=== PATIENT | male | born 1970 | race Caucasian/White ===

== ENCOUNTER 2018-07-10 06:44 | Emergency (ER) | payer SELFPAY ==
[2018-07-10 06:50] VITALS: BP 110/80; PULSE 74; RESP 16; TEMP 36.6; O2SAT 97; BMI 28.3
--- NOTE | 2018-07-10 07:37 | DI.RAD.S_ITS ---
PROCEDURE: XR CHEST 2V INDICATIONS: Cough and cold symptoms TECHNIQUE: 2 views of the chest were acquired. COMPARISON: None. FINDINGS: Surgical changes and devices: None. Lungs and pleura: Lungs are clear. No pleural effusions or pneumothorax. Mediastinum: Mediastinal contours are normal. Heart size is normal. Bones and chest wall: No suspicious bony abnormalities. Soft tissues appear unremarkable. IMPRESSION: Normal for age, source of current cough and upper respiratory tract infection symptoms is not seen. Dictated by: Magno Rosenthal M.D. on 07/10/2018 at 8:23 Approved by: Magno Rosenthal M.D. on 07/10/2018 at 8:23
--- NOTE | 2018-07-10 07:47 | ED.URI ---
HPI - URI/Sore Throat General Chief Complaint: Upper Respiratory Symptoms Stated Complaint: 'chest cold going on/sinus infection/pulled muscle Time Seen by Provider: 07/10/18 07:47 Source: patient Mode of arrival: ambulatory Limitations: no limitations History of Present Illness HPI Narrative: This is a 48-year-old male comes to the emergency department with complaint of sinus congestion, cough with some green productive sputum. Patient has not had any fevers. He states no ear pain. He has pressure in his sinuses. Patient has not had any nausea or vomiting. No other GI or urinary symptoms. No swelling in his lower extremities. He feels a little congested in his chest. He states that he does not feel short of breath, he has not had any tightness or pressure in his chest or pain he denies any other medical issues. He does smoke regularly about a pack every 24 hours. Rare usage of cocaine and occasional alcohol. Patient denies any other illicits. He denies any prior surgeries. 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 Related Data Home Medications Medication Instructions Recorded Confirmed OMEPRAZOLE (Prilosec) 20 mg PO #0 12/18/05 Diphenhydramine Hydrochloride 0 PO * [place] DOSE/FREQUENCY #0 05/06/06 (Benadryl) PredniSONE (Deltasone) 0 PO * UK DOSE/FREQUENCY #0 05/06/06 Ranitidine Hydrochloride 0 mg PO * [place] DOSE/FREQUENCY #0 05/06/06 (Ranitidine HCl) Previous Rx's Medication Instructions Recorded fluticasone propionate [Flonase 1 spray NASAL DAILY #9.9 gram 07/10/18 Allergy Relief] prednisone 50 mg PO DAILY #5 tab 07/10/18 Allergies Allergy/AdvReac Type Severity Reaction Status Date / Time No Known Drug Allergies Allergy Verified 07/10/18 07:38 Review of Systems Review of Systems ROS Unobtainable: All systems reviewed & are unremarkable except as noted in HPI and below Constitutional Denies chills, Denies fever(s), Denies headache(s), Denies lethargy and Denies weakness ENT Ears, Nose, Mouth, and Throat: Reports as per HPI, Denies change in voice, Denies dysphagia, Denies otalgia, Denies headache(s), Denies hoarseness, Reports nasal congestion, Denies nasal discharge, Reports post nasal drip, Denies sinus pain, Reports sinus pressure and Denies sore throat Cardiovascular Denies chest pain, Denies diaphoresis, Denies syncope, Denies edema, Denies irregular heart rhythm, Reports lightheadedness (rarely), Denies palpitations, Denies dyspnea, Denies dyspnea on exertion and Denies orthopnea Respiratory Reports change in phlegm color (green), Reports chest congestion, Reports cough, Denies pain on inspiration, Denies pain with cough, Denies dyspnea, Denies dyspnea on exertion and Denies wheezing Gastrointestinal Gastrointestinal: Denies abdominal pain, Denies change in bowel habits, Denies dysphagia, Denies diarrhea, Denies nausea and Denies vomiting Genitourinary Denies hematuria, Denies difficulty urinating, Denies flank pain and Denies urinary urgency Integumentary/Breasts Denies rash Neurologic Denies syncope, Denies headache(s) and Denies weakness Endocrine Denies palpitations Allergic/Immunologic Denies wheezing [facility] Medical History (Updated 07/10/18 @ 08:07 by Mindi Reynoso DO) Tobacco abuse (Chronic) Social History Smoking Status: Current every day smoker Social History (Updated 07/10/18 @ 08:08 by Mindi Reynoso DO) Smoking Status: Current every day smoker alcohol intake: current substance use type: crack/cocaine Exam Narrative Exam Narrative: GEN: well nourished, well appearing male, alert and oriented x 3, patient appears to be in no acute distress. HEENT: Atraumatic, pupils are equal round reactive to light, extraocular movements are intact, nares are clear, TMs are clear with no fluid, there is no conjunctival pallor. Throat is has some postnasal drip without any exudates, erythema, tonsillar enlargement or uvular deviation, mild bilateral submandibular lymphadenopathy. No sinus tenderness. HEART: Regular rate and rhythm without murmur, clicks, rubs. LUNGS:Lungs clear to auscultation, no wheezes, rales, crackles, chest moves symmetrically ABD:bowel sounds normal, soft, non-tender, no guarding, rebound, rigidity, no masses noted, no hepatosplenomegaly MSCL: Non-tender, no muscle atrophy, muscles strength 5/5 upper and lower extremities, full range of motion, normal gait NEURO:CN 2-12 intact, sensation normal SKIN: Patient has healing abrasions on his anterior abdomen that appear clear clean dry and intact Initial Vital Signs Initial Vital Signs: Vital Signs Temperature 97.8 F 07/10/18 06:50 Pulse Rate 74 07/10/18 06:50 Respiratory Rate 16 07/10/18 06:50 Blood Pressure 110/80 07/10/18 06:50 Pulse Oximetry 97 07/10/18 06:50 Course Orders Ordered: ED Orders 07/10/18 07:37 CXR [XR chest 2V] Stat Vital Signs - 8 hr 07/10/18 06:50 Temperature 97.8 F Pulse Rate 74 Respiratory Rate 16 Blood Pressure 110/80 Pulse Oximetry 97 MDM - URI/Sore Throat Imaging Data Chest x-ray: Attestation: I personally reviewed and interpreted this imaging study as follows: My impression: No acute process. Radiologist's impression: [address] [address] XRay Report Signed Patient: Joseph Sutton LMR#: [id number] : 1970Acct:[id number] Age/Sex: 48 / MDate of Service: 07/10/18 Loc: ED Accession Number: [id number] Procedure: XR chest 2V Ordering Provider: Mindi Reynoso D.O. PROCEDURE: XR CHEST 2V INDICATIONS: Cough and cold symptoms TECHNIQUE: 2 views of the chest were acquired. COMPARISON: None. FINDINGS: Surgical changes and devices: None. Lungs and pleura: Lungs are clear. No pleural effusions or pneumothorax. Mediastinum: Mediastinal contours are normal. Heart size is normal. Bones and chest wall: No suspicious bony abnormalities. Soft tissues appear unremarkable. IMPRESSION: Normal for age, source of current cough and upper respiratory tract infection symptoms is not seen. Dictated by: Magno Rosenthal M.D. on 07/10/2018 at 8:23 Approved by: Magno Rosenthal M.D. on 07/10/2018 at 8:23 [facility] Narrative Medical decision making narrative: Discussed with patient suspect he has some bronchitis with some recent upper respiratory viral infection causing his symptoms in combination with his tobacco abuse. We did discuss antibiotics but I suspect he will do better with some steroids. Patient agreeable to trying steroids 1st. Discussed signs and symptoms to watch out for. Counseling given for tob and cocaine cessation. Patient has not used cocaine in quite some time per patient. Discharge Plan Departure Patient Disposition: Home Clinical Impression: Bronchitis Discharge Date/Time: 07/10/18 08:08 Interventions: ED Discharge Assessment Last Done: 07/10/18 08:08 Instructions: Acute Bronchitis Activity Restrictions/Additional Instructions: Follow up with primary care physician in the next 3-5 days if not improving. The number to find a physician is [phone]. Take oral steroids until gone. Use nasal steroids 1 puff in each nostril in the morning and evening. Make sure drinking plenty of fluids. Return to the emergency department for fevers greater 100.4 F, worsening shortness breath, passing out, persistent vomiting, new chest pain or shortness of breath, swelling in your lower extremities or other new or concerning symptoms. Prescriptions: New prednisone 50 mg tablet 50 mg PO DAILY Qty: 5 RF: 0 fluticasone propionate [Flonase Allergy Relief] 50 mcg/actuation spray,suspension 1 spray NASAL DAILY Qty: 9.9 RF: 0 No Action OMEPRAZOLE (Prilosec) 20 mg PO Qty: 0 RF: 0 PredniSONE (Deltasone) PO * [place] DOSE/FREQUENCY Qty: 0 RF: 0 Diphenhydramine Hydrochloride (Benadryl) PO * [place] DOSE/FREQUENCY Qty: 0 RF: 0 Ranitidine Hydrochloride (Ranitidine HCl) PO * [place] DOSE/FREQUENCY Qty: 0 RF: 0
== END 2018-07-10 08:08 | disposition home or self-care (01) ==
PROVIDERS: Emergency Provider Emergency Medicine
DX: J40 Bronchitis, not specified as acute or chronic (principal)
CPT/HCPCS: 71046; 99283

== ENCOUNTER 2018-07-20 23:14 | Emergency (ER) | payer SELFPAY ==
[2018-07-20 23:17] VITALS: BP 128/88; PULSE 81; RESP 18; TEMP 36.6; O2SAT 98; BMI 28.3
[2018-07-21] MEDS: ACETAMINOPHEN 325 MG TABLET 975 MG PO (00:32)
[2018-07-21] MEDS: AMOXICILLIN 250 MG PREPACK 1 BOTTLE MISC (00:32)
--- NOTE | 2018-07-21 00:33 | ED.DENTAL ---
HPI - Dental/Oral General Chief complaint: Dental/Oral Stated complaint: jaw pain Time Seen by Provider: 07/21/18 00:10 Source: patient Mode of arrival: ambulatory Limitations: no limitations History of Present Illness HPI Narrative: Patient is a 48-year-old male who presents with left upper dental pain. It has been ongoing off and on for the past 4 days progressively getting worse. Very sensitive to cold and heat. No fever he has shooting pain up into his ear. He has appointment with the dentist in 2 days. MD Complaint: tooth pain 1. Pain no abscess Related Data Home Medications Medication Instructions Recorded Confirmed OMEPRAZOLE (Prilosec) 20 mg PO #0 12/18/05 Diphenhydramine Hydrochloride 0 PO * UK DOSE/FREQUENCY #0 05/06/06 (Benadryl) PredniSONE (Deltasone) 0 PO * UK DOSE/FREQUENCY #0 05/06/06 Ranitidine Hydrochloride 0 mg PO * UK DOSE/FREQUENCY #0 05/06/06 (Ranitidine HCl) Previous Rx's Medication Instructions Recorded fluticasone propionate [Flonase 1 spray NASAL DAILY #9.9 gram 07/10/18 Allergy Relief] prednisone 50 mg PO DAILY #5 tab 07/10/18 amoxicillin 500 mg PO BID 7 Days #14 cap 07/21/18 Allergies Allergy/AdvReac Type Severity Reaction Status Date / Time No Known Drug Allergies Allergy Verified 07/10/18 07:38 Review of Systems Review of Systems GENERAL: Denies chills,fever HEENT: See HPI RESPIRATORY: Denies dyspnea, cough, wheezing CARDIOVASCULAR: Denies chest pain, palpitations GASTROINTESTINAL: Denies nausea, vomiting MUSCULOSKELETAL: Denies extremity pain, injury SKIN: No rash, no laceration, no pruritus NEUROLOGIC: Denies weakness, dizziness, headache, numbness 8 point review of systems is negative except for those stated above and HPI [facility] Medical History Tobacco abuse (Chronic) Social History (Updated 07/10/18 @ 08:08 by Mindi Reynoso DO) Smoking Status: Current every day smoker alcohol intake: current substance use type: crack/cocaine Social History Smoking Status: Current every day smoker alcohol intake: current substance use type: crack/cocaine Exam Initial Vital Signs Initial Vital Signs: Vital Signs Temperature 97.8 F 07/20/18 23:17 Pulse Rate 81 07/20/18 23:17 Respiratory Rate 18 07/20/18 23:17 Blood Pressure 128/88 07/20/18 23:17 Pulse Oximetry 98 07/20/18 23:17 GENERAL: Well-appearing, well-nourished and in no acute distress. CARDIOVASCULAR: peripheral pulses in tact, cap refill <2 sec RESPIRATORY: No respiratory distress, speaks in full sentences without difficulty EXTREMITIES: Normal range of motion, no clubbing or edema. Neurovascularly intact NEUROLOGICAL: Cranial nerves II through XII grossly intact. Normal gait and speech. SKIN: Warm, dry, no petechiae, no rashes or lesions. HENMT Mouth: other (No abscess no trismus no swelling. Dental filling noted tooth 14. ) Course Orders Ordered: Discontinued Medications Acetaminophen (Tylenol) 975 mg PO NOW ONE Stop: 07/21/18 00:17 Last Admin: 07/21/18 00:32 Dose: 975 mg Amoxicillin ( Trimox 250mg Prepack) 1 bottle MISC SEEINSTR ONE Stop: 07/21/18 00:17 Last Admin: 07/21/18 00:32 Dose: 1 bottle Vital Signs - 8 hr 07/20/18 23:17 07/21/18 00:39 Temperature 97.8 F 98.7 F Pulse Rate 81 70 Respiratory Rate 18 16 Blood Pressure 128/88 122/85 Pulse Oximetry 98 98 Discharge Plan Departure Patient Disposition: Home Clinical Impression: Toothache Discharge Date/Time: 07/21/18 00:42 Interventions: ED Discharge Assessment Last Done: 07/21/18 00:39 Instructions: DI for Dental Pain Activity Restrictions/Additional Instructions: *You have been diagnosed with dental pain *What to do: Need to see dentist for further treatment *Continue to take medications as directed Amoxicillin 500 mg twice daily for 7 days *Follow up with your primary care provider in 2-3 days see dentist in 2 days as previously arranged *Return to ER if you should have worsening pain, facial swelling or any new, worsening or concerning symptoms Prescriptions: New amoxicillin 500 mg capsule 500 mg PO BID 7 Days Qty: 14 RF: 0 No Action OMEPRAZOLE (Prilosec) 20 mg PO Qty: 0 RF: 0 PredniSONE (Deltasone) PO * [place] DOSE/FREQUENCY Qty: 0 RF: 0 Diphenhydramine Hydrochloride (Benadryl) PO * DOSE/FREQUENCY Qty: 0 RF: 0 Ranitidine Hydrochloride (Ranitidine HCl) PO * DOSE/FREQUENCY Qty: 0 RF: 0 prednisone 50 mg tablet 50 mg PO DAILY Qty: 5 RF: 0 fluticasone propionate [Flonase Allergy Relief] 50 mcg/actuation spray,suspension 1 spray NASAL DAILY Qty: 9.9 RF: 0
[2018-07-21 00:39] VITALS: BP 122/85; PULSE 70; RESP 16; TEMP 37.1; O2SAT 98
== END 2018-07-21 00:42 | disposition home or self-care (01) ==
PROVIDERS: Emergency Provider Emergency Medicine
DX: K08.89 Other specified disorders of teeth and supporting structures (principal)
CPT/HCPCS: 99282; 99283

== ENCOUNTER 2018-10-09 08:36 | Emergency (ER) | payer SELFPAY ==
[2018-10-09 08:48] VITALS: BP 111/76; PULSE 97; RESP 18; TEMP 37.8; O2SAT 98
[2018-10-09 09:00] VITALS: BP 109/68; PULSE 93; RESP 16; O2SAT 99
--- NOTE | 2018-10-09 09:05 | ED_ITS ---
HPI - URI/Sore Throat General Chief Complaint: Upper Respiratory Symptoms Stated Complaint: not feeling good/chills/burning up Time Seen by Provider: 10/09/18 08:38 Source: patient Mode of arrival: ambulatory Limitations: no limitations History of Present Illness HPI Narrative: Patient comes emergency department complaining of chills, sweats, fevers, and aches, as well as a light cough, for the last 3 or 4 days. Patient denies any dysuria. No rhinorrhea. No nausea or vomiting today, but he did have an episode yesterday. No diarrhea. Patient states he has not had a sore throat except for yesterday when he swallowed some Powerade, and felt a pain in his throat at that time. Patient denies back pain. No other complaints at this time. Patient states he did have a sick contact at work last week, and that the man had been having fevers. Related Data Home Medications Medication Instructions Recorded Confirmed OMEPRAZOLE (Prilosec) 20 mg PO #0 12/18/05 Diphenhydramine Hydrochloride 0 PO * UK DOSE/FREQUENCY #0 05/06/06 (Benadryl) PredniSONE (Deltasone) 0 PO * UK DOSE/FREQUENCY #0 05/06/06 Ranitidine Hydrochloride 0 mg PO * UK DOSE/FREQUENCY #0 05/06/06 (Ranitidine HCl) Previous Rx's Medication Instructions Recorded fluticasone propionate [Flonase 1 spray NASAL DAILY #9.9 gram 07/10/18 Allergy Relief] prednisone 50 mg PO DAILY #5 tab 07/10/18 Allergies Allergy/AdvReac Type Severity Reaction Status Date / Time No Known Drug Allergies Allergy Verified 10/09/18 08:51 Review of Systems Review of Systems ROS Unobtainable: All systems reviewed & are unremarkable except as noted in HPI and below Constitutional Constitutional: Reports chills, Denies fatigue, Reports fever(s), Denies frequent falls, Denies lethargy and Reports weakness Comments: Sweats Eyes Eyes: Denies change in vision, Denies eye discharge, Denies irritation and Denies loss of vision ENT Ears, Nose, Mouth, and Throat: Denies change in voice, Denies dizziness, Denies neck pain, Denies sore throat and Denies throat swelling Cardiovascular Cardiovascular: Denies chest pain, Denies irregular heart rhythm, Denies lightheadedness, Denies palpitations, Denies dyspnea, Denies dyspnea on exertion and Denies orthopnea Respiratory Respiratory: Denies cough, Denies dyspnea, Denies dyspnea on exertion and Denies wheezing Gastrointestinal Gastrointestinal: Denies abdominal pain, Denies change in bowel habits, Denies diarrhea, Denies nausea and Denies vomiting Genitourinary Genitourinary: Denies hematuria, Denies flank pain, Denies urinary incontinence and Denies urinary urgency Musculoskeletal Musculoskeletal: Denies back pain, Reports myalgias, Denies muscle weakness, Denies neck pain, Denies numbness and Denies tingling Integumentary/Breasts Skin/Breast: Denies pruritus, Denies erythema, Denies rash and Denies wounds Neurologic Neurologic: Denies behavioral changes, Denies confusion, Denies dizziness, Denies frequent falls, Denies loss of vision, Denies numbness, Denies tingling and Reports weakness Psychiatric Psychiatric: Denies anxiety, Denies behavioral changes, Denies confusion, Denies depression, Denies homicidal ideation and Denies suicidal ideation Endocrine Endocrine: Denies fatigue, Denies flushing and Denies palpitations Hematologic/Lymphatic Hematologic/Lymphatic: Denies easy bruising Allergic/Immunologic Allergic/Immunologic: Denies urticaria, Denies throat swelling and Denies wheezing [facility] Medical History Asthma (Acute) GERD (gastroesophageal reflux disease) (Acute) Tobacco abuse (Chronic) Social History Smoking Status: Current every day smoker alcohol intake: current substance use type: crack/cocaine Social History Smoking Status: Current every day smoker alcohol intake: current substance use type: crack/cocaine Exam Initial Vital Signs Initial Vital Signs: Vital Signs Temperature 100.1 F H 10/09/18 08:48 Pulse Rate 97 H 10/09/18 08:48 Respiratory Rate 18 10/09/18 08:48 Blood Pressure 111/76 10/09/18 08:48 Pulse Oximetry 98 10/09/18 08:48 Const General: cooperative and well developed Nutritional Appearance: well nourished Orientation: alert, awake, oriented x3 and not confused HENLA Head: normocephalic and atraumatic Ears: external ears normal Nose: external nose normal and No nasal discharge Face and sinus: face symmetric and No dry mucous membranes Mouth: oral mucosae normal and moist mucous membranes Teeth and gingiva: dentition normal Throat: tonsils normal and uvula midline Eyes General: appearance normal, both eyes and all related structures Eyelids: eyelids normal Conjunctivae: conjunctivae normal Sclera: sclerae normal Pupils: PERRL EOM: EOM intact bilaterally Neck Neck: normal visual inspection, trachea midline, No lymphadenopathy, No midline deformity and No JVD Lymphatic: No lymphedema Chest Chest: normal inspection of the chest Resp Effort & Inspection: normal respiratory effort, able to speak in complete sentences, no respiratory distress and no use of accessory muscles Auscultation: clear to auscultation bilaterally, no rales, no rhonchi and no wheezes Cardio Rate: regular rate Rhythm: regular rhythm Heart Sounds: no click, no gallops, no murmurs and no rubs Pulses: normal peripheral pulses GI Inspection: non-distended Palpation: soft, no hepatosplenomegaly, No guarding, No pulsatile mass and No tender Auscultation: normal bowel sounds Back/Spine/Pelvis Back: CVA tenderness (Mild, bilateral) Cervical Spine: cervical ROM normal and No pain with cervical ROM Thoracic/Lumbar Spine: thoracic and lumbar spine normal to inspection Skin General: no rashes or lesions noted, No jaundice and No petechiae Neuro General: alert, oriented x3, gait normal and no focal motor deficits Speech: speech normal Extrem General: full ROM, no clubbing, cyanosis or edema, no pedal edema and no calf tenderness Psych Appearance: well kempt Mental Status: mental status grossly normal Attitude: cooperative Thought Content: normal and suicidality Judgment: judgment good Course Course Course Narrative: The patient was given a L of IV fluid, as well as ibuprofen and Tylenol, and worked up with influenza testing, urinalysis, and chest x-ray. Workup was found to be negative. Patient was found be feeling better after IV fluid and antipyretics. We have discussed home management of symptoms, as well as the usual indications for return. Patient has been found to have a small pulmonary nodule on x-ray, which is likely chronic. He has been instructed that he will need a follow-up x-ray in about 6 months to re-evaluate this. Orders Ordered: Discontinued Medications Acetaminophen (Tylenol) 975 mg PO NOW ONE Stop: 10/09/18 09:04 Last Admin: 10/09/18 09:34 Dose: 975 mg Documented by: RODOLFO Sodium Chloride (Normal Saline 0.9%) 1,000 mls @ 1,000 mls/hr IV BOLUS ONE Stop: 10/09/18 10:02 Last Infusion: 10/09/18 10:45 Dose: 0 mls/hr Documented by: Admin: 10/09/18 09:36 Dose: 1,000 mls/hr Documented by: RODOLFO Ibuprofen (Advil) 800 mg PO NOW ONE Stop: 10/09/18 09:04 Last Admin: 10/09/18 09:34 Dose: 800 mg Documented by: RODOLFO Vital Signs Vital signs: Vital Signs - 8 hr 10/09/18 08:48 Temperature 100.1 F H Pulse Rate 97 H Respiratory Rate 18 Blood Pressure 111/76 Pulse Oximetry 98 MDM - URI/Sore Throat Medical Records Attestation: I reviewed the patient's medical records. Lab Data Attestation: I reviewed the patient's lab results. Labs: Lab Results 10/09/18 10/09/18 10/09/18 Range/Units 09:14 09:17 09:24 Urine Color Yellow Urine Appearance Clear Urine pH 6.0 (4.5-8.0) Ur Specific [place] 1.025 (1.000-1.035) Urine Protein 2+ H (Negative) Urine Glucose (UA) Negative (Negative) g/dL Urine Ketones 1+ H (NEGATIVE) Urine Occult Blood 3+ H (Negative) Urine Nitrate Negative (Negative) Urine Bilirubin 1+ H (NEGATIVE) Urine Ictotest Negative (Negative) Urine Urobilinogen 2.0 H (0.2) E.U./dL Ur Leukocyte Esterase Negative (NEGATIVE) Urine RBC 30-100/hpf H 30-100/hpf H (0-5/HPF) Urine WBC 0-1/hpf 0-1/hpf (0-5/HPF) Ur Squamous Epith Cells 1-5 /hpf 1-5 /hpf (0-5/HPF) Urine Bacteria None seen None seen (None) Ur Culture Indicated? Cult not indicated Cult not indicated Influenza A & B (PCR) Negative (Negative) Urine Dip Bedside Urine Glucose Negative Bedside Urine Bilirubin + 1 Bedside Urine Ketone ++ 40 Urine Specific [place] 1.025 Bedside Urine Occult Blood +++ Bedside Urine pH 6.0 Bedside Urine Protein ++ 100 Bedside Urine Urobilinogen 2+ 4mg Bedside Urine Nitrite - Negative Bedside Urine Leukocytes +/- 15 Esterase Imaging Data Chest x-ray: Radiologist's impression: PROCEDURE: XR CHEST 2V INDICATIONS: cough/fever TECHNIQUE: 2 views of the chest were acquired. COMPARISON: [facility], , XR CHEST 2V, 07/10/2018, 7:40. FINDINGS: Surgical changes and devices: None. Lungs and pleura: Lungs are clear. 4 mm pulmonary nodule overlying the right second anterior rib. Unchanged. No pleural effusions or pneumothorax. Mediastinum: Mediastinal contours are normal. Heart size is normal. Bones and chest wall: No suspicious bony abnormalities. Soft tissues appear unremarkable. IMPRESSION: 1. No evidence acute pulmonary process. 2. Incidental 4 mm nodular density, either related to the right second rib or in the right lung. PULMONARY NODULE MANAGEMENT RECOMMENDATIONS: Pulmonary nodules are a common incidental finding on CT. If there is prior imaging such as a chest radiograph or CT available at another facility, this should be compared to assess for stability. Solid noncalcified pulmonary nodule less than 6 mm: In patient's with a low risk of malignancy, no follow up imaging is recommended for this nodule (less than 1% risk of malignancy). In patients at higher risk, and(s) dose CT of the chest in 12 months is recommended. Risk factors include current smoking, recently quit smoking, and morphology (e.g. spiculated margins). Reference: Mihir Prakash. et al, Radiology. 2016April 04, PMID: [id number] Dictated by: Willem Solano M.D. on 10/09/2018 at 9:40 Approved by: Willem Solano M.D. on 10/09/2018 at 9:43 Discharge Plan Departure Patient Disposition: Home Clinical Impression: Acute viral syndrome Discharge Date/Time: 10/09/18 10:46 Instructions: DI for Viral Syndrome Activity Restrictions/Additional Instructions: Your urinalysis, influenza test, and chest x-ray are all negative. There is a small pulmonary nodule, which is a growth of tissue that is commonly found in lungs on imaging. You will need to have a repeat chest x-ray in about 6 months to see how this is doing. Most likely this is a benign finding. As far as your fever and chills, you most likely have 1 of the many viruses that go around. This will blow over on its own. Please drink plenty of fluids and take ibuprofen and Tylenol, as needed for fever. You may take Tylenol 650 mg every 4 hours and ibuprofen 600 mg every 6 hours, as needed for fever. Prescriptions: No Action OMEPRAZOLE (Prilosec) 20 mg PO Qty: 0 RF: 0 PredniSONE (Deltasone) 0 PO * UK DOSE/FREQUENCY Qty: 0 RF: 0 Diphenhydramine Hydrochloride (Benadryl) 0 PO * UK DOSE/FREQUENCY Qty: 0 RF: 0 Ranitidine Hydrochloride (Ranitidine HCl) 0 mg PO * UK DOSE/FREQUENCY Qty: 0 RF: 0 prednisone 50 mg tablet 50 mg PO DAILY Qty: 5 RF: 0 fluticasone propionate [Flonase Allergy Relief] 50 mcg/actuation spray,suspension 1 spray NASAL DAILY Qty: 9.9 RF: 0 Referrals: [facility] [Provider Group]
[2018-10-09 09:19] LABS: Bacteria Urine None Seen
[2018-10-09 09:27] LABS: Culture Indicated Urine Cult Not Indicated; RBC Urine 30-100/HPF (0-5/HPF); Squamous Epithelial Cell Urine 1-5 /HPF (0-5/HPF); WBC Urine 0-1/HPF (0-5/HPF)
[2018-10-09 09:31] LABS: Appearance Urine UA CLEAR; Bacteria Urine None Seen; Bilirubin Urine UA 1+ (NEGATIVE); Color Urine UA YELLOW; Glucose Urine UA NEGATIVE (Negative); Ketones Urine UA 1+ (NEGATIVE); Leukocyte Esterase Urine UA NEGATIVE (NEGATIVE); Nitrite Urine UA NEGATIVE (Negative); Occult Blood Urine UA 3+ (Negative); Protein Urine UA 2+ (Negative); Specific Gravity Urine UA 1.025 (1.000-1.035)
[2018-10-09 09:34] VITALS: TEMP 38
[2018-10-09] MEDS: IBUPROFEN 400 MG TABLET 800 MG PO (09:34)
[2018-10-09] MEDS: ACETAMINOPHEN 325 MG TABLET 975 MG PO (09:34)
[2018-10-09 09:35] LABS: Culture Indicated Urine Cult Not Indicated; Ictotest Urine Negative (Negative); RBC Urine 30-100/HPF (0-5/HPF); Squamous Epithelial Cell Urine 1-5 /HPF (0-5/HPF); WBC Urine 0-1/HPF (0-5/HPF)
[2018-10-09] MEDS: SODIUM CHLORIDE 0.9% 1,000 ML 1000 ML IV (09:36)
[2018-10-09 09:43] LABS: Influenza A and B by PCR Rapid Negative (Negative)
[2018-10-09 10:30] VITALS: BP 101/65; PULSE 82; RESP 12; O2SAT 99
[2018-10-09 10:36] VITALS: TEMP 37.1
== END 2018-10-09 10:46 | disposition home or self-care (01) ==
PROVIDERS: Emergency Provider Emergency Medicine
DX: B34.9 Viral infection, unspecified (principal); R50.9 Fever, unspecified
CPT/HCPCS: 36591; 71046; 81001; 81003; 81015; 87400; 87502; 96360; 99283; 99284

== ENCOUNTER 2022-05-27 14:45 | Emergency (ER) | payer OTHER, SELFPAY ==
[2022-05-27 15:10] VITALS: BP 131/88; PULSE 91; RESP 16; TEMP 36.6; O2SAT 97; BMI 29.9
--- NOTE | 2022-05-27 16:56 | PC.NURSE ---
Pt was recently treated for a sinus infection with amoxicillian. Finished coarse of antbx last week
[2022-05-27] MEDS: LIDOCAINE PATCH 1 EACH ADH..PATCH TOP (17:58)
[2022-05-27 18:04] VITALS: BP 132/88; PULSE 90; RESP 16; O2SAT 99
--- NOTE | 2022-05-27 18:52 | ED.EAR ---
HPI - Ear Problem <Neil Rome PA-C - Last Filed: 05/27/22 18:58> General Chief complaint: Ear Stated complaint: ear ache moved to headache pain down neck Time Seen by Provider: 05/27/22 17:18 Source: patient Mode of arrival: Ambulatory History of Present Illness HPI Narrative: 51-year-old male with past medical history GERD, asthma presents to the ED with 1 week of left-sided ear pain, left-sided neck pain. Patient denies fever, chills, rhinorrhea, sore throat, cough, chest pain, shortness of breath, lightheadedness, dizziness, syncope, nausea, vomiting. Patient denies any changes in hearing. Patient states that he had a cold about 10 days ago. Patient states that he also had sinusitis 2 or 3 weeks ago for which she completed a course of amoxicillin. Patient states that he has left-sided neck pain that feels like he pulled a muscle. Related Data Home Medications Medication Instructions Recorded Confirmed OMEPRAZOLE (Prilosec) 20 mg PO ##0 12/18/05 Diphenhydramine Hydrochloride 0 PO * UK DOSE/FREQUENCY ##0 05/06/06 (Benadryl) PredniSONE (Deltasone) 0 PO * UK DOSE/FREQUENCY ##0 05/06/06 Ranitidine Hydrochloride 0 mg PO * UK DOSE/FREQUENCY ##0 05/06/06 (Ranitidine HCl) Previous Rx's Medication Instructions Recorded fluticasone propionate 50 1 spray intranasal DAILY #9.9 grams 07/10/18 mcg/actuation nasal spray,suspension (Flonase Allergy Relief) prednisone 50 mg tablet 50 mg PO DAILY #5 tabs 07/10/18 amoxicillin 875 mg-potassium 1 tab PO BID 7 days #14 tabs 05/27/22 clavulanate 125 mg tablet Allergies Allergy/AdvReac Type Severity Reaction Status Date / Time No Known Drug Allergies Allergy Verified 10/09/18 08:51 Review of Systems <Neil Rome PA-C - Last Filed: 05/27/22 18:58> Review of Systems ROS Unobtainable: All systems reviewed & are unremarkable except as noted in HPI and below Constitutional Constitutional: Denies chills, Denies fatigue, Denies fever(s), Denies frequent falls, Denies lethargy and Denies weakness Eyes Eyes: Denies change in vision, Denies eye discharge, Denies irritation and Denies loss of vision ENT Ears, Nose, Mouth, and Throat: Denies change in voice, Denies dizziness, Reports otalgia, Denies neck pain, Denies sore throat and Denies throat swelling Cardiovascular Cardiovascular: Denies chest pain, Denies irregular heart rhythm, Denies lightheadedness, Denies palpitations, Denies dyspnea, Denies dyspnea on exertion and Denies orthopnea Respiratory Respiratory: Denies cough, Denies dyspnea, Denies dyspnea on exertion and Denies wheezing Gastrointestinal Gastrointestinal: Denies abdominal pain, Denies change in bowel habits, Denies diarrhea, Denies nausea and Denies vomiting Genitourinary Genitourinary: Denies hematuria, Denies flank pain, Denies urinary incontinence and Denies urinary urgency Musculoskeletal Musculoskeletal: Denies back pain, Denies muscle weakness, Denies neck pain, Denies numbness and Denies tingling Comments: Neck pain Integumentary/Breasts Skin/Breast: Denies pruritus, Denies erythema, Denies rash and Denies wounds Neurologic Neurologic: Denies behavioral changes, Denies confusion, Denies dizziness, Denies frequent falls, Denies loss of vision, Denies numbness, Denies tingling and Denies weakness Psychiatric Psychiatric: Denies anxiety, Denies behavioral changes, Denies confusion, Denies depression, Denies homicidal ideation and Denies suicidal ideation Endocrine Endocrine: Denies fatigue, Denies flushing and Denies palpitations Hematologic/Lymphatic Hematologic/Lymphatic: Denies easy bruising Allergic/Immunologic Allergic/Immunologic: Denies urticaria, Denies throat swelling and Denies wheezing Patient History <Neil Rome PA-C - Last Filed: 05/27/22 18:58> Medical History Asthma GERD (gastroesophageal reflux disease) Tobacco abuse Social History Smoking Status: Current every day smoker alcohol intake: current substance use type: crack/cocaine Smoking Status: Current every day smoker alcohol intake frequency: holidays/special occasions only Substance Use Type: does not use Exam <Neil Rome PA-C - Last Filed: 05/27/22 18:58> Narrative Exam Narrative: Const General:?cooperative, healthy appearing and comfortable [facility] Head:?normal to inspection Ears:?hearing grossly normal bilaterally; left tympanum appears erythematous, bulging; right tympanum normal Nose:?external nose normal Face and sinus:?normal facial exam and sinuses nontender Mouth:?oral mucosae normal Throat:?posterior oropharynx normal Eyes General:?appearance normal, both eyes and all related structures Neck Neck:?normal visual inspection and no lymphadenopathy noted Resp Effort & Inspection:?normal respiratory effort Auscultation:?clear to auscultation bilaterally Cardio Rate:?regular rate Rhythm:?regular rhythm Musculoskeletal No midline tenderness to palpation. No paraspinal tenderness to palpation. There is full range of motion. Strength and sensation is intact. Patient appears neurovascularly intact. Neuro General:?patient alert, patient awake and patient oriented x3 Initial Vital Signs Initial Vital Signs: Vital Signs Temperature 97.8 F 05/27/22 15:10 Pulse Rate 91 H 05/27/22 15:10 Respiratory Rate 16 05/27/22 15:10 Blood Pressure 131/88 05/27/22 15:10 Pulse Oximetry 97 05/27/22 15:10 Oxygen Delivery Method Room Air 05/27/22 15:10 <Joseph Jimenez DO - Last Filed: 05/28/22 07:07> Initial Vital Signs Initial Vital Signs: Vital Signs Temperature 97.8 F 05/27/22 15:10 Pulse Rate 91 H 05/27/22 15:10 Respiratory Rate 16 05/27/22 15:10 Blood Pressure 131/88 05/27/22 15:10 Pulse Oximetry 97 05/27/22 15:10 Oxygen Delivery Method Room Air 05/27/22 15:10 Course <Neil Rome PA-C - Last Filed: 05/27/22 18:58> Orders Ordered: Discontinued Medications Lidocaine (Lidocaine Patch 1 Each Adh..Patch) 1 each TOP NOW ONE Stop: 05/27/22 17:55 Last Admin: 05/27/22 17:58 Dose: 1 each Documented By: RADHA Vital Signs Vital signs: Vital Signs - 8 hr 05/27/22 15:10 05/27/22 18:04 Temperature 97.8 F Pulse Rate 91 H 90 Respiratory Rate 16 16 Blood Pressure 131/88 132/88 Pulse Oximetry 97 99 Oxygen Delivery Method Room Air Room Air <DO Malorie De Los Santos Last Filed: 05/28/22 07:07> Orders Ordered: Discontinued Medications Lidocaine (Lidocaine Patch 1 Each Adh..Patch) 1 each TOP NOW ONE Stop: 05/27/22 17:55 Last Admin: 05/27/22 17:58 Dose: 1 each Documented By: RADHA Vital Signs Vital signs: Vital Signs - 8 hr 05/27/22 15:10 05/27/22 18:04 Temperature 97.8 F Pulse Rate 91 H 90 Respiratory Rate 16 16 Blood Pressure 131/88 132/88 Pulse Oximetry 97 99 Oxygen Delivery Method Room Air Room Air Medical Decision Making <Neil Rome PA-C - Last Filed: 05/27/22 18:58> MDM Narrative Medical decision making narrative: 51-year-old male with past medical history GERD, asthma presents to the ED with 1 week of left-sided ear pain, left-sided neck pain. Physical exam shows otitis media of the left ear. Will prescribe antibiotics. Neck pain is musculoskeletal sprain/strain with no midline tenderness to palpation. Recommend lidocaine patch, heat packs, Tylenol, ibuprofen. ED return precautions were discussed with patient. Patient verbalized understanding. Discharge Plan Departure Patient Disposition: Home Clinical Impression: Otitis media Instructions: Middle Ear Infection Activity Restrictions/Additional Instructions: You were evaluated in the ED today for left-sided ear pain. It appears that you have a middle ear infection of the left ear for which you are being prescribed an antibiotic. Please complete the antibiotics as prescribed. For the neck pain, you may apply heat, lidocaine patches and take ibuprofen/Tylenol. Please follow-up with your PCP so you can get a referral to physical therapy. Return to the ED if your symptoms worsen, you experience persistent vomiting, fevers, chills. Prescriptions: New amoxicillin-pot clavulanate 875-125 mg tablet 1 tab PO BID 7 Days Qty: 14 0RF No Action OMEPRAZOLE (Prilosec) 20 mg PO Qty: 0 PredniSONE (Deltasone) 0 PO * UK DOSE/FREQUENCY Qty: 0 Diphenhydramine Hydrochloride (Benadryl) 0 PO * UK DOSE/FREQUENCY Qty: 0 Ranitidine Hydrochloride (Ranitidine HCl) 0 mg PO * UK DOSE/FREQUENCY Qty: 0 prednisone 50 mg tablet 50 mg PO DAILY Qty: 5 0RF fluticasone propionate [Flonase Allergy Relief] 50 mcg/actuation spray,suspension 1 spray NASAL DAILY Qty: 9.9 0RF Rx Instructions: administer into each nostril Referrals: Miscellaneous,Doctor, MD [Primary Care Provider] - Stand Alone Forms: Patient Portal/API <Joseph Jimenez DO - Last Filed: 05/28/22 07:07> Cosign ED Attending Cosignature Attestation: Dr Jimenez Co-Sign Statement: I was available for consultation during this patient's emergency department visit. This chart is signed by myself for administrative purposes only. I did not have direct contact with this patient during this visit. They were seen independently by the APC.
== END 2022-05-27 18:04 | disposition home or self-care (01) ==
PROVIDERS: Emergency Provider Student in an Organized Health Care Education/Training Program
DX: H66.92 Otitis media, unspecified, left ear (principal); M54.2 Cervicalgia
CPT/HCPCS: 99282

== ENCOUNTER 2024-06-21 12:24 | Emergency (ER) | payer OTHER, SELFPAY ==
[2024-06-21 12:31] VITALS: BP 143/97; PULSE 91; RESP 17; TEMP 36.8; O2SAT 95; BMI 29.9
--- NOTE | 2024-06-21 12:35 | DI.RAD.S_ITS ---
PROCEDURE: XR ANKLE RT MIN 3V INDICATIONS: injury TECHNIQUE: 3 views of the ankle were acquired. COMPARISON: None. FINDINGS: Bones: No fractures or dislocations. Ankle mortise is normally aligned. No suspicious bony lesions. Soft tissues: No tibiotalar joint effusion. Achilles tendon appears normal. IMPRESSION: No visualized acute fracture or dislocation. However, if clinical concern and/or pain persist, short interval imaging followup in 7-10 days is recommended, as occult injury cannot be definitively excluded. Dictated by: Janneth Fung M.D. on 06/21/2024 at 13:29 Approved by: Janneth Fung M.D. on 06/21/2024 at 13:30
[2024-06-21 13:01] VITALS: PULSE 68
[2024-06-21 13:35] VITALS: BP 154/94; PULSE 78; RESP 18; TEMP 36.6; O2SAT 96
--- NOTE | 2024-06-21 14:24 | ED_ITS ---
HPI - Extremity Injury (Lower) <Neil Rome PA-C - Last Filed: 06/21/24 15:02> General Chief Complaint: Extremity Injury, Lower Stated Complaint: L&I Hurt right ankle Time Seen by Provider: 06/21/24 13:05 Source: patient Mode of arrival: Ambulatory History of Present Illness HPI Narrative: 54-year-old male presents to the ED status post a right ankle injury sustained at work just prior to arrival today. Patient states that a Naldo fell on his lateral right ankle. Patient complains of pain at the site of the injury. No numbness, tingling, weakness. Able to bear weight and ambulate, albeit with pain. Related Data Home Medications Medication Instructions Recorded Confirmed OMEPRAZOLE (Prilosec) 20 mg PO ##0 12/18/05 Diphenhydramine Hydrochloride 0 PO * [place] DOSE/FREQUENCY ##0 05/06/06 (Benadryl) PredniSONE (Deltasone) 0 PO * UK DOSE/FREQUENCY ##0 05/06/06 Ranitidine Hydrochloride 0 mg PO * [place] DOSE/FREQUENCY ##0 05/06/06 (Ranitidine HCl) Previous Rx's Medication Instructions Recorded fluticasone propionate 50 1 spray intranasal DAILY #9.9 grams 07/10/18 mcg/actuation nasal spray,suspension (Flonase Allergy Relief) prednisone 50 mg tablet 50 mg PO DAILY #5 tabs 07/10/18 Allergies Allergy/AdvReac Type Severity Reaction Status Date / Time No Known Drug Allergies Allergy Verified 06/21/24 12:35 Review of Systems <Neil Rome PA-C - Last Filed: 06/21/24 15:02> Constitutional Constitutional: Denies chills, Denies fatigue, Denies fever(s), Denies frequent falls, Denies lethargy and Denies weakness Eyes Eyes: Denies change in vision, Denies eye discharge, Denies irritation and Denies loss of vision ENT Ears, Nose, Mouth, and Throat: Denies change in voice, Denies dizziness, Denies neck pain, Denies sore throat and Denies throat swelling Cardiovascular Cardiovascular: Denies chest pain, Denies irregular heart rhythm, Denies lightheadedness, Denies palpitations, Denies dyspnea, Denies dyspnea on exertion and Denies orthopnea Respiratory Respiratory: Denies cough, Denies dyspnea, Denies dyspnea on exertion and Denies wheezing Gastrointestinal Gastrointestinal: Denies abdominal pain, Denies change in bowel habits, Denies diarrhea, Denies nausea and Denies vomiting Musculoskeletal Musculoskeletal: Denies neck pain and Denies numbness Comments: Right lateral ankle swelling, pain Integumentary/Breasts Skin/Breast: Denies pruritus, Denies erythema, Denies rash and Denies wounds Neurologic Neurologic: Denies behavioral changes, Denies confusion, Denies dizziness, Denies frequent falls, Denies loss of vision, Denies numbness and Denies weakness Psychiatric Psychiatric: Denies anxiety, Denies behavioral changes, Denies confusion, Denies depression, Denies homicidal ideation and Denies suicidal ideation Endocrine Endocrine: Denies fatigue, Denies flushing and Denies palpitations Hematologic/Lymphatic Hematologic/Lymphatic: Denies easy bruising Allergic/Immunologic Allergic/Immunologic: Denies urticaria, Denies throat swelling and Denies wheezing Patient History <Neil Rome PA-C - Last Filed: 06/21/24 15:02> Medical History GERD (gastroesophageal reflux disease) Asthma Tobacco abuse Social History Smoking Status: Current every day smoker alcohol intake: current substance use type: crack/cocaine Smoking Status: Current every day smoker tobacco type: cigarettes alcohol intake frequency: holidays/special occasions only Exam <Neil Rome PA-C - Last Filed: 06/21/24 15:02> Narrative Exam Narrative: Const General:?cooperative, healthy appearing and comfortable [facility] Head:?normal to inspection Ears:?hearing grossly normal bilaterally Nose:?external nose normal Face and sinus:?normal facial exam and sinuses nontender Mouth:?oral mucosae normal Throat:?posterior oropharynx normal Eyes General:?appearance normal, both eyes and all related structures Neck Neck:?normal visual inspection and no lymphadenopathy noted Resp Effort & Inspection:?normal respiratory effort Auscultation:?clear to auscultation bilaterally Cardio Rate:?regular rate Rhythm:?regular rhythm Musculoskeletal There is tenderness to palpation and slight swelling to the right lateral malleolus. Able to bear weight and ambulate, although it is painful. Strength and sensation intact. Neurovascularly intact. Neuro General:?patient alert, patient awake and patient oriented x3 Initial Vital Signs Initial Vital Signs: Vital Signs Temperature 98.2 F 06/21/24 12:31 Pulse Rate 91 H 06/21/24 12:31 Respiratory Rate 17 06/21/24 12:31 Blood Pressure 143/97 H 06/21/24 12:31 Pulse Oximetry 95 06/21/24 12:31 Oxygen Delivery Method Room Air 06/21/24 12:31 <Saritha Sauer DO - Last Filed: 06/28/24 02:06> Initial Vital Signs Initial Vital Signs: Vital Signs Temperature 98.2 F 06/21/24 12:31 Pulse Rate 91 H 06/21/24 12:31 Respiratory Rate 17 06/21/24 12:31 Blood Pressure 143/97 H 06/21/24 12:31 Pulse Oximetry 95 06/21/24 12:31 Oxygen Delivery Method Room Air 06/21/24 12:31 Course <Neil Rome PA-C - Last Filed: 06/21/24 15:02> Orders Ordered: Discontinued Medications Ibuprofen (Ibuprofen 400 Mg Tablet) 800 mg PO NOW ONE Stop: 06/21/24 14:40 Last Admin: 06/21/24 14:46 Dose: 800 mg Documented By: RB Vital Signs Vital signs: Vital Signs - 8 hr 06/21/24 12:31 06/21/24 13:01 06/21/24 13:35 Temperature 98.2 F 98 F Pulse Rate 91 H 78 Pulse Rate [Right Dorsalis Pedis] 68 Respiratory Rate 17 18 Blood Pressure 143/97 H 154/94 H Pulse Oximetry 95 96 Oxygen Delivery Method Room Air Room Air <DO Malorie Mix Last Filed: 06/28/24 02:06> Orders Ordered: Discontinued Medications Ibuprofen (Ibuprofen 400 Mg Tablet) 800 mg PO NOW ONE Stop: 06/21/24 14:40 Last Admin: 06/21/24 14:46 Dose: 800 mg Documented By: RB Vital Signs Vital signs: Vital Signs - 8 hr 06/21/24 12:31 06/21/24 13:01 06/21/24 13:35 Temperature 98.2 F 98 F Pulse Rate 91 H 78 Pulse Rate [Right Dorsalis Pedis] 68 Respiratory Rate 17 18 Blood Pressure 143/97 H 154/94 H Pulse Oximetry 95 96 Oxygen Delivery Method Room Air Room Air MDM - Extremity Injury (Lower) <Neil Rome PA-C - Last Filed: 06/21/24 15:02> [facility] Narrative Medical decision making narrative: 54-year-old male presents to the ED status post a right ankle injury sustained at work just prior to arrival today. X-ray was obtained which shows no acute fractures or dislocations. Patient's symptoms most consistent with a contusion/musculoskeletal sprain/strain. Patient was given a dose of ibuprofen in the ED today. Ankle was Doug wrapped and crutches provided for ambulation. Weightbearing as tolerated. Recommend follow-up with PCP as soon as possible. ED return precautions discussed with patient. Patient verbalized understanding. Medical records reviewed: Yes Discharge Plan Departure Patient Disposition: Home Clinical Impression: Ankle injury Qualifiers: Encounter type: initial encounter Laterality: right Qualified Code(s): S99.911A - Unspecified injury of right ankle, initial encounter Instructions: DI for Ankle Sprain Activity Restrictions/Additional Instructions: You were evaluated in the ED today for an ankle injury. The x-ray did not show any fractures or dislocations. It appears that you have a sprain or contusion of the right ankle. Your ankle has been Doug wrapped in the ED. You were given some ibuprofen. You also have been provided with crutches to get around. You may take 800 mg of ibuprofen every 8 hours with food to reduce pain and swelling. You may bear weight as tolerated. Follow-up with your primary care doctor as soon as possible. Return to the ED if you have worsening symptoms, numbness, tingling, weakness. Prescriptions: No Action OMEPRAZOLE (Prilosec) 20 mg PO Qty: 0 PredniSONE (Deltasone) 0 PO * [place] DOSE/FREQUENCY Qty: 0 Diphenhydramine Hydrochloride (Benadryl) 0 PO * [place] DOSE/FREQUENCY Qty: 0 Ranitidine Hydrochloride (Ranitidine HCl) 0 mg PO * [place] DOSE/FREQUENCY Qty: 0 prednisone 50 mg tablet 50 mg PO DAILY Qty: 5 0RF fluticasone propionate [Flonase Allergy Relief] 50 mcg/actuation spray,suspension 1 spray NASAL DAILY Qty: 9.9 0RF Rx Instructions: administer into each nostril Referrals: Miscellaneous,Doctor, MD [Primary Care Provider] - Stand Alone Forms: Patient Portal/API/Survey, Work Release Note ED Sign-out <Saritha Sauer DO - Claudio Filed: 06/28/24 02:06> Cosign ED Attending Cosignature Attestation: I was available for consultation.
[2024-06-21] MEDS: IBUPROFEN 400 MG TABLET 800 MG PO (14:46)
[2024-06-21 14:53] VITALS: BP 148/92; PULSE 80; RESP 18; TEMP 36.6; O2SAT 99
== END 2024-06-21 14:54 | disposition home or self-care (01) ==
PROVIDERS: Emergency Provider Student in an Organized Health Care Education/Training Program
DX: S99.911A Unspecified injury of right ankle, initial encounter (principal); W22.8XXA Striking against or struck by other objects, initial encounter
CPT/HCPCS: 73610; 99283